=== PATIENT | male | born 1980 | race Caucasian/White ===

== ENCOUNTER 2018-03-06 09:19 | Emergency (ER) | payer OTHER ==
[2018-03-06 09:24] VITALS: BP 117/87
[2018-03-06] MEDS ORDERED: TDAP ADULT 0.5 ML INJ (BOOSTRIX) IM ONE (09:37)
--- NOTE | 2018-03-06 09:53 | EDPHY ---
General Time Seen by Provider: 03/06/18 09:45 Narrative: CHIEF COMPLAINT: Cut my leg HISTORY OF PRESENT ILLNESS: Patient presents by private vehicle with complaints of an accidental cut to his left leg. He was working with a hemorrhage just prior to arrival when he accidentally struck his left cheung. He sustained a laceration to the area with moderate bleeding that stopped with pressure. He has no difficulty weight- bearing but it is slightly painful. Improved at rest. No numbness or tingling. No weakness. No foreign body. Tetanus status in question. No other associated complaints or modifying factors TIME OF INJURY: Just prior to arrival TETANUS STATUS: Updated here MEDICAL/SURGICAL/SOCIAL HISTORY: Uncomplicated REVIEW OF SYSTEMS: Ten systems reviewed and are negative unless otherwise noted in the HPI EXAMINATION: Vitals: Triage VS reviewed General Appearance: Alert, no distress Head: normocephalic, atraumatic Cardiovascular: Symmetric DP PT pulses.. Brisk cap refill Neurological: A&O, light sensory symmetric, knee, ankle and great toe strength symmetric Skin: Warm and dry, no rash. 2 cm laceration to left anterior cheung, transverse. No pulsatile bleeding foreign body. No exposure of the tibia. Extremities: Tenderness of the left anterior cheung laceration. All compartments are soft the left lower extremity. Range of motion lower extremities symmetric. DIFFERENTIAL DIAGNOSES: Including but not limited to laceration, laceration complication, laceration foreign body, laceration with deep tissue injury MDM: 9:45 a.m. Acute laceration to left anterior cheung that is accidental by a hammer. There is no bony tenderness surrounding this but the tibia is near the visualize, thus I have ordered an x-ray. The wound has been anesthetized. Proceed with irrigation closure. Tdap updated here. 10:30 a.m. Wound has been repaired with excellent approximation wound borders. He is ambulatory. He is neuro intact distally. We discussed wound care. We discussed ED precautions and work comp follow-up. I have answered all his questions. Discharged stable condition with 10 day follow-up for suture removal. PROCEDURE: Laceration repair Consent: Verbal Location: Left anterior cheung Length of repair: 2 cm Complexity: Complex Layer involvement: Single layer Anesthesia: Local. 0.25% Marcaine with epinephrine, 5 mL Irrigation: Extensive Debridement: None Procedure description: Following good anesthesia, the wound was copiously irrigated. Wound bed was explored with a sterile glove, and there is no foreign body noted. No injury to the anterior tibialis fascia or muscle layer. Wound borders were approximated well with good hemostasis. Tolerated well without complication. Suture/Staple material: 3-0 Prolene, 3 simple ruptured sutures Wound care: Routine as discussed Suture/Staple removal: 10 Days SUPERVISION: This patient was independently evaluated without direct involvement of or examination by the attending physician. ED Precautions: Worsening pain. Erythema, edema, cyanosis, pallor, paresthesia or anesthesia. - Diagnostics Imaging Results: Imaging Impressions Tibia/Fibula X-Ray 03/06/18 09:53 Impression: Negative. No acute fracture. - History Smoking Status: Current every day smoker - Objective Vital Signs: Initial Vital Signs Temperature (C) 98.1 F 03/06/18 09:22 Heart Rate 65 03/06/18 09:22 Respiratory Rate 17 03/06/18 09:22 Blood Pressure 117/87 H 03/06/18 09:22 O2 Sat (%) 96 03/06/18 09:22 O2 Delivery Mode Room Air Allergies/Adverse Reactions: No Known Allergies Allergy (Unverified 03/06/18 09:21) Home Medications: Medication Instructions Recorded NK [No Known Home Meds] 03/06/18 Medications Given: Discontinued Medications Diphtheria/Tetanus/Acell Pertussis (Boostrix) 0.5 ml IM .ONCE ONE Stop: 03/06/18 09:38 Last Admin: 03/06/18 09:40 Dose: 0.5 ml Departure - Departure Disposition: Home, Routine, Self-Care Clinical Impression: Laceration of left leg excluding thigh Qualifiers: Encounter type: initial encounter Qualified Code(s): S81.812A - Laceration without foreign body, left lower leg, initial encounter Condition: Good Instructions: Care For Your Stitches (ED), Laceration (ED) Additional Instructions: 1. Thin layer of bacitracin once daily for the next 2 days 2. Keep the wound covered while showering for the next 3 days 3. Daily wound care as discussed 4. Return here for suture removal in 10 days 5. Return here for signs of infection as discussed including warmth, redness, fever, drainage from the site 6. return here for increasing pain surrounding the laceration 7. Do not submerge the wound in any water, hot tub, swimming pool until sutures removed Referrals: PRIMARY CARE DR - ED,. [[employer]] - As per Instructions Physician,Emergency Dept, MD [Medical Doctor] - As per Instructions (Ten days for suture removal) Stand Alone Forms: Work Comp Follow Up
== END 2018-03-06 10:56 | disposition home or self-care (01) ==
PROC: 0HQLXZZ Repair Left Lower Leg Skin, External Approach (ICD-10-PCS; principal; 2018-03-06)
DX: S81.812A Laceration without foreign body, left lower leg, initial encounter (principal); X58.XXXA Exposure to other specified factors, initial encounter; Y92.89 Other specified places as the place of occurrence of the external cause; Y93.9 Activity, unspecified; Y99.0 Civilian activity done for income or pay; Z23 Encounter for immunization